=== PATIENT | female | born 1935 | race Caucasian/White ===

== ENCOUNTER 2018-02-13 15:23 | Inpatient (IN) | payer MEDICARE, MEDICAID ==
[2018-02-13] MEDS ORDERED: Acetaminophen 500 MG TAB ONE (16:36)
--- NOTE | 2018-02-13 16:45 | RAD ---
RIGHT WRIST THREE VIEWS: 02/13/18 HISTORY: 82-year-old female with history of right wrist pain following syncopal episode from a toilet. Fall an d trauma. 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 IMPRESSION: Right wrist joint arthrosis without acute fracture or dislocation. POS: [facility]
--- NOTE | 2018-02-13 16:46 | RAD ---
RIGHT ELBOW FOUR VIEWS: 02/13/18 HISTORY: 82-year-old female with history of right elbow pain following a syncopal episode while sitting on the toilet and resultant trauma. There are some arthrosis changes of the elbow joint. No evidence for acute fracture or dislocation. IMPRESSION: Right elbow joint athrosis without acute fracture or dislocation. POS: [facility]
--- NOTE | 2018-02-13 16:50 | RAD ---
RIGHT KNEE FOUR VIEWS: 02/13/18 HISTORY: 82-year-old female with history of right knee injury following a syncopal episode while sitting on th e toilet and resultant trauma. Degenerative changes of the right knee joint with some chondrocalcinosis. No fracture or dislocation or other acute process. IMPRESSION: Degenerative changes without fracture or dislocation. POS: [facility]
[2018-02-13 16:51] LABS: #Basophils 0.1 thou/uL (0.0-0.2); #Eosinphils 0.2 thou/uL (0.0-0.7); #Lymphocytes 2.3 thou/uL (1.20-3.40); #Monocytes 0.6 thou/uL (0.11-0.59); #Neutrophils 7.2 thou/uL (1.40-6.50); %Basophils 0.8 % (0.0-1.0); %Eosinophils 1.6 % (0.0-10.0); %Lymphocytes 22.4 % (21.0-51.0); %Monocytes 5.8 % (0.0-10.0); %Neutrophils 69.5 % (42.0-75.0); Hemoglobin 13.7 g/dL (12.0-16.0); Mean Corpuscular HGB CONC 34.3 g/dL (32.0-36.0); Mean Corpuscular Hemoglobin 33.5 pg (27.0-31.0); Mean Corpuscular Volume 97.7 fl (81.0-99.0); Mean Platelet Volume 5.4 fL (7.4-10.4); Platelet Count 348 thou/uL (130-400); RBC Distribution Width 10.4 % (11.5-14.5); Red Blood Cell (RBC) Count 4.09 mill/uL (4.20-5.40); White Blood Cell (WBC) Count 10.3 thou/uL (4.8-10.8)
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
[2018-02-13 17:18] LABS: CKMB 0.7 ng/mL (0-6.6); Troponin I Less than 0.010 ng/mL (< 0.028)
[2018-02-13 17:19] LABS: ALT (SGPT) 9 U/L (8-55); AST (SGOT) 23 U/L (5-34); Alkaline Phosphatase 65 U/L (40-150); Anion Gap 13 mmol/L (10-20); BUN (Urea Nitrogen) 16 mg/dL (9.8-20.1); Bilirubin, Total 0.5 mg/dL (0.2-1.2); Calc. Creatinine Clearance 0 mL/min (70-130); Calcium 9.9 mg/dL (7.8-10.44); Carbon Dioxide 26 mmol/L (23-31); Chloride 97 mmol/L (98-107); Estimated GFR-MDRD 51; Globulin 3.4 g/dL (2.4-3.5); Glucose 96 mg/dL (83-110); Potassium 4.2 mmol/L (3.5-5.1); Protein, Total 7.4 g/dL (6.0-8.3); Sodium 132 mmol/L (136-145)
--- NOTE | 2018-02-13 18:00 | CT ---
BRAIN CT WITHOUT IV CONTRAST 02/13/18 HISTORY: 82-year-old female with history of syncope and trauma. Patient has Alzheimer's. COMPARISON: 07/18/16. FINDINGS: There is again noted to be prominent ventriculomegaly which appears to be slightly worse than on the prior study. There is again noted to be a somewhat poorly circumscribed high attenuation mass in the midline in the anterior frontal region measuring approximately 3.3 cm transversely, increasing in siz e from the prior 07/18/16 study at which time it was approximately 2.9 cm. No evidence for acute hemo rrhage. IMPRESSION: Increasing midline increased attenuation mass in the anterior frontal lobes without significant adjac ent edema. Marked ventriculomegaly showing minimal increase particularly in the size of the temporal horns of the lateral ventricles when compared to the prior study. No evidence for acute hemorrhage. C onsider followup nonemergent brain MRI for further assessment in regard to the frontal mass. POS: [facility]
[2018-02-13] MEDS ORDERED: cloNIDine 0.1 MG TAB ONE (18:43)
[2018-02-13] MEDS ORDERED: Ondansetron ODT 4 MG TAB SL PRN (23:19)
[2018-02-13] MEDS ORDERED: Acetaminophen 325 MG TAB PO PRN (23:19)
[2018-02-13] MEDS ORDERED: Ondansetron HCl/PF 4 MG/2 ML Vial IVP PRN ×2 (23:19→23:31)
[2018-02-13] MEDS ORDERED: HYDROcodone/Acetaminophen 5/325 mg Tablet PO PRN (23:31)
[2018-02-13 23:37] VITALS: BMI 23.4
[2018-02-13] MEDS: Sodium Chloride 0.9% 1,000 ML IV SCH (23:54)
--- NOTE | 2018-02-14 00:02 | HP ---
DATE OF ADMISSION: 02/13/2018 TIME OF SERVICE: 2115 hours. PRIMARY CARE PHYSICIAN: Aarti Craig MD CHIEF COMPLAINT: Near syncope. HISTORY OF PRESENT ILLNESS: Ms. Tatum is an 82-year-old female with a history of kind of benign brain tumor at the midline frontal lobes. She was at home and had to get up and go to the restroom this m orning, and had gone to the bathroom without difficulty. She stood up, was able to put her pants on, and then called out for help because she did not feel well. Her daughter came in and witnessed her fall limply to the ground. She did not hit her head. No loss of consciousness and mental status was fairly normal very quickly. No bowel or bladder incontinence. No tongue biting. No tonic-clonic a ctivity. She did have a history of fall some 3 years ago, and they felt that something was going on with her e x- and since she him and her daughter has been living with her and he has been gone, she has had no further problems. She usually gets around with a walker. No chest pain or shortness of breath. No nausea or vomiting. No diarrhea or constipation. PAST MEDICAL HISTORY: 1. Dementia. 2. Coronary artery disease, status post DC in the 80s. 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 4. Hypertension. 5. Hypothyroidism. 6. Asthma. 7. Benign brain tumor. 8. Anxiety. PAST SURGICAL HISTORY: 1. Some TB surgery in 1973 involving open chest. 2. Hysterectomy. 3. Tonsillectomy remotely. HOME MEDICATIONS: 1. Xanax 0.25 mg p.o. q.a.m. and 0.5 mg p.o. at bedtime. 2. Premarin 0.625 mg daily. 3. Advair 100/50, one puff daily. 4. Hydralazine 10 mg p.o. b.i.d. 5. Namenda 10 mg p.o. b.i.d. 6. Lasix 20 mg p.o. b.i.d. 7. Protonix 40 mg daily. 8. Albuterol MDI p.r.n. 9. Levothyroxine 88 mcg 3 times a week and 50 mcg the other days. ALLERGIES: IODINE CONTRAST/DYE and PENICILLIN. FAMILY HISTORY: Negative for clotting or bleeding disorder. No immune dysfunction. SOCIAL HISTORY: Negative habits x3. Her daughter sold her house in [place] and moved in with her 3 years ago. REVIEW OF SYSTEMS: All systems reviewed and negative except as stated per HPI. PHYSICAL EXAMINATION: VITAL SIGNS: Temperature is 97.5, pulse 56, blood pressure 124/45, respiratory rate 18, satting 100% on room air. GENERAL: She is awake. She is alert. She is oriented x3. She is an elderly white female, who appe ars to be in no acute distress. HEENT: Normocephalic, atraumatic. Pupils equal, round, and reactive to light bilaterally. Mucous m embranes are moist. No visible lesion or thrush. NECK: Supple. There is no lymphadenopathy, JVD, or thyromegaly. She had normal carotid upstrokes. I do not appreciate bruit. LUNGS: Clear. No wheeze, no rales, no rhonchi. CARDIOVASCULAR: Normal S1, S2. She has a 2/6 holosystolic murmur best heard at the apex. She has n o systolic ejection murmurs. ABDOMEN: Soft, nontender, nondistended. No mass or organomegaly with normoactive bowel sounds. The re is no rebound, rigidity, or guarding. EXTREMITIES: No cyanosis, no clubbing. She has got nonpitting edema in the bilateral lower extremit ies to about mid tibia level. SKIN: Multiple ecchymosis, but otherwise no rashes or lesions. MUSCULOSKELETAL: Normal to inspection. All joints appeared normal. No evidence of effusion or palp able fluid collections. Does have crepitus to bilateral knees, right more than left. NEUROLOGIC: Cranial nerves II-XII are grossly intact without any focal neurologic deficits, normal s peech pattern, 5/5 strength. LABORATORY DATA: Sodium 132, potassium 4.2, chloride 97, bicarbonate 26, BUN 16, creatinine 1.03, gl ucose 96, calcium 9.1. Liver function completely within normal limits. CBC showed a white count of 10.3, hemoglobin of 13.7, hematocrit of 40, platelet count of 348,000. CK normal at 25, CK-MB 0.7. Troponin I undetectable, less than 0.01. Multiple x-rays looking for fractures are all negative. CT scan of the brain showed the frontal lobe mass has slightly increased in size, but significantly worsened hydrocephalus and enlargement of the bilateral lateral ventricles. ASSESSMENT AND PLAN: 1. Presyncope: The patient likely became orthostatic. We will get orthostatic here. She did not t tremanie her morning blood pressure medicine. She has been here in the ER for some time. Blood pressure after multiple rounds of medications is now well controlled. We will follow up on her blood pressure and orthostatics in the morning. We will start her on IV fluids at 70 mL per hour. 2. Coronary artery disease. Continue home medications. 3. Asthma. Continue home medications. 4. History of hypertension as above. 5. Hypothyroidism. Continue levothyroxine. 6. Anxiety. Continue Xanax. 7. Dementia, on Namenda. We will continue.
[2018-02-14 00:21] LABS: CKMB 0.7 ng/mL (0-6.6); Troponin I Less than 0.010 ng/mL (< 0.028)
[2018-02-14] MEDS: Levothyroxine Sodium 50 MCG TAB PO SCH (04:38)
[2018-02-14 04:52] LABS: #Basophils 0.1 thou/uL (0.0-0.2); #Eosinphils 0.2 thou/uL (0.0-0.7); #Lymphocytes 3.1 thou/uL (1.20-3.40); #Monocytes 0.6 thou/uL (0.11-0.59); #Neutrophils 4.5 thou/uL (1.40-6.50); %Basophils 0.9 % (0.0-1.0); %Eosinophils 2.1 % (0.0-10.0); %Lymphocytes 36.1 % (21.0-51.0); %Monocytes 7.5 % (0.0-10.0); %Neutrophils 53.4 % (42.0-75.0); Hemoglobin 11.8 g/dL (12.0-16.0); Mean Corpuscular HGB CONC 34.5 g/dL (32.0-36.0); Mean Corpuscular Hemoglobin 33.6 pg (27.0-31.0); Mean Corpuscular Volume 97.2 fl (81.0-99.0); Mean Platelet Volume 5.6 fL (7.4-10.4); Platelet Count 287 thou/uL (130-400); RBC Distribution Width 10.4 % (11.5-14.5); Red Blood Cell (RBC) Count 3.51 mill/uL (4.20-5.40); White Blood Cell (WBC) Count 8.5 thou/uL (4.8-10.8)
[2018-02-14 05:00] LABS: Anion Gap 12 mmol/L (10-20); BUN (Urea Nitrogen) 15 mg/dL (9.8-20.1); Calc. Creatinine Clearance 52 mL/min (70-130); Calcium 9.1 mg/dL (7.8-10.44); Carbon Dioxide 24 mmol/L (23-31); Chloride 99 mmol/L (98-107); Estimated GFR-MDRD 65; Glucose 90 mg/dL (83-110); Magnesium 2.1 mg/dL (1.6-2.6); Potassium 3.9 mmol/L (3.5-5.1); Sodium 131 mmol/L (136-145)
[2018-02-14] MEDS: Mometasone/Formoterol 120 PUFF INHALER INH SCH (06:59)
[2018-02-14 07:16] LABS: CKMB 0.6 ng/mL (0-6.6); Troponin I Less than 0.010 ng/mL (< 0.028)
[2018-02-14] MEDS: Famotidine 20 MG TAB PO SCH (08:33)
[2018-02-14] MEDS: hydrALAZINE 10 MG TAB PO SCH ×2 (08:34→20:20)
[2018-02-14] MEDS: ALPRAZolam 0.25 MG TAB PO PRN ×2 (08:40→20:21)
[2018-02-14] MEDS ORDERED: FLUTICASONE INH SCH (09:00)
[2018-02-14] MEDS ORDERED: Famotidine 20 MG TAB PO SCH (09:00)
[2018-02-14] MEDS ORDERED: SALMETEROL INH SCH (09:00)
[2018-02-14] MEDS: Acetaminophen 325 MG TAB PO PRN (12:17)
[2018-02-14] MEDS: Ondansetron ODT 4 MG TAB PO PRN (12:20)
--- NOTE | 2018-02-14 13:59 | PRG ---
DATE OF SERVICE: 02/14/2018 This is a 30-minute initial hospital visit note in which 30 minutes were spent in reviewing the imagi ng record, evaluation, examination of patient, and formulation of plan. CHIEF COMPLAINT: Olfactory groove meningioma. HISTORY OF PRESENT ILLNESS: Ms. Tatum is a very pleasant 82-year-old woman retired from the [employer]. She has a known olfactory groove meningioma that has essentially been followed by [facility] and has been asymptomatic. I reviewed CT scans all the way back to 2012 that demonstrates the af orementioned meningioma and the fact that it has enlarged. It is over 3 cm now, there is no worrisom e vasogenic edema associated with this. In talking with the patient and her daughter, she really has been asymptomatic and as such, I do not suspect it is the cause of her syncope. She is DNR. It is a bit unclear to me why she has not had an MRI to further evaluate this, although at this point, the treatment is irrelevant as the patient as I discussed with her does not wish to have any type of cran iotomy for meningioma resection. I can certainly understand why. I do not think this is a tumor mimi t she will succumb to, but in particular at her age and certainly surgical risk is substantial given her age. She is neurologically intact and has no symptoms or findings related to the tumor. I discu ssed with her and her daughter that in my opinion I do not think it is necessary to further follow th is meningiomas can certainly stall in the growth, but they also tend to grow over time even the benig n more common meningiomas, although I do not think again that this will become an issue for the patie nt and even if it was to become an issue, neither the patient nor her daughter want anything done for it. I would just continue with the syncopal workup. DIAGNOSES: 1. Olfactory groove meningioma enlarging over the years, asymptomatic. 2. Syncope.
[2018-02-14] MEDS: hydrALAZINE 20 MG/ML VIAL SLOW IVP PRN (16:23)
--- NOTE | 2018-02-14 18:16 | PDOC.PN ---
- Subjective Encounter Start Date: 02/14/18 Encounter Start Time: 17:45 Subjective: f/u for near syncope. Feels ok overall. Some orthostasis noted per nursing -: but no accompanying sx. Not very active at home per daughter. - Objective Resuscitation Status: Resuscitation Status DNR:Do Not Resuscitate MAR Reviewed: Yes Vital Signs & Weight: Vital Signs (12 hours) Temp Pulse Pulse Pulse Pulse Pulse Resp 02/14/18 16:35 69 70 74 77 02/14/18 16:23 70 02/14/18 16:20 97.9 F 73 18 02/14/18 14:36 02/14/18 12:25 02/14/18 11:02 96.7 F L 62 20 02/14/18 07:49 97.8 F 65 16 02/14/18 07:29 97.5 F L 64 20 02/14/18 06:59 65 16 BP BP BP BP BP BP BP 02/14/18 16:35 193/74 H 168/72 H 131/60 213/81 H 02/14/18 16:23 201/77 H 02/14/18 16:20 201/77 H 02/14/18 14:36 195/73 H 02/14/18 12:25 176/76 H 02/14/18 11:02 150/69 H 02/14/18 07:49 02/14/18 07:29 177/76 H 02/14/18 06:59 BP BP Pulse Ox 02/14/18 16:35 02/14/18 16:23 02/14/18 16:20 99 02/14/18 14:36 02/14/18 12:25 02/14/18 11:02 97 02/14/18 07:49 02/14/18 07:29 123/61 168/72 H 97 02/14/18 06:59 98 I&O: 02/13/18 02/14/18 02/15/18 06:59 06:59 06:59 Intake Total 341 Output Total 300 100 Balance 41 -100 Result Diagrams: 02/14/18 04:16 02/14/18 04:16 Radiology Reviewed by me: Yes (CT brain - + meningioma, ventriculomegaly) EKG Reviewed by me: Yes ( Tele - SR) Phys Exam - Physical Examination Constitutional: NAD HEENT: PERRLA, sclera anicteric, oral pharynx no lesions Neck: no nodes, no JVD, supple, full ROM Respiratory: no wheezing, no rales, no rhonchi, clear to auscultation bilateral S1, S2 Cardiovascular: RRR, no significant murmur, no rub, gallop Gastrointestinal: soft, non-tender, no distention, positive bowel sounds Musculoskeletal: no edema, pulses present Neurological: normal sensation, moves all 4 limbs Psychiatric: normal affect, A&O x 3 Deviation from normal: contusion on forehead and R forearm Skin: normal turgor, cap refill <2 seconds Dx/Plan (1) Near syncope Status: Acute Comment: Likely multifactorial, IVF's, serial BP monitoring, ? ataxia given hx of meningioma (2) Meningioma Code(s): D32.9 - BENIGN NEOPLASM OF MENINGES, UNSPECIFIED Status: Chronic Comment: Neurosurgery monitoring but no plans for resection as pt not interested in surgical intervention, supportive care (3) Falls frequently Code(s): R29.6 - REPEATED FALLS Status: Chronic Comment: RW with SBA, recommend home health with PT on d/c (4) Chronic hyponatremia Code(s): E87.1 - HYPO-OSMOLALITY AND HYPONATREMIA Status: Chronic Comment: Stable trend (5) Hypertension Code(s): I10 - ESSENTIAL (PRIMARY) HYPERTENSION Status: Chronic Qualifiers: Hypertension type: essential hypertension Qualified Code(s): I10 - Essential (primary) hypertension Comment: Some orthostasis noted but overall trend stable - Plan plan discussed w/ family, PT/OT, social work administrator, out of bed/ambulate, DVT proph w/SCDs Stable overall -: Discussed orthostasis but may have to adjust to it at home -: Home Health with PT on d/c -: Continue IVF's another 24h then d/c -: Home in am 02/15/18 * .
[2018-02-14] MEDS: Sodium Chloride 0.9% 1,000 ML IV SCH ×3 (18:52→19:37)
[2018-02-15] MEDS: Levothyroxine Sodium 50 MCG TAB PO SCH (04:56)
[2018-02-15] MEDS: hydrALAZINE 20 MG/ML VIAL SLOW IVP PRN ×3 (05:06→21:23)
[2018-02-15] MEDS: Famotidine 20 MG TAB PO SCH (08:25)
[2018-02-15] MEDS: hydrALAZINE 10 MG TAB PO SCH (08:25)
[2018-02-15 11:17] LABS: Bilirubin Negative (Negative); Blood, Urine Negative (Negative); Clarity CLOUDY (Clear); Glucose, Urine (Dipstick) Negative (Negative); Leukocyte Large (Negative); Nitrite Negative (Negative); Protein, Urine (Dipstick) Negative (Neg-Trace); Specific Gravity, Urine 1.013 (1.002-1.036); Urobilinogen 0.2 mg/dL (0.2-1.0)
[2018-02-15 11:20] LABS: Bacteria/HPF 1+ HPF (None Seen); Hyaline Casts/LPF 0-3 HYALINE CAST LPF (0-3 Hyaline); Pathc Cast-AUWi Flag 0.58 (0-2.49); RBC/HPF 0-3 HPF (0-3); Squamous Epithelial 0-3 HPF (0-3); WBC/HPF 21-50 HPF (0-3)
--- NOTE | 2018-02-15 12:25 | PDOC.PN ---
- Subjective Encounter Start Date: 02/15/18 (f/u syncope) Encounter Start Time: 12:23 Subjective: Pt denies any pain or problems. No overnight events - Objective Resuscitation Status: Resuscitation Status DNR:Do Not Resuscitate Vital Signs & Weight: Vital Signs (12 hours) Temp Pulse Resp BP BP BP BP 02/15/18 12:02 97.8 F 02/15/18 11:00 77 16 148/70 H 02/15/18 08:25 95 02/15/18 08:14 95 98/46 L 02/15/18 08:13 89 120/58 L 02/15/18 08:12 97.9 F 89 16 160/68 H 02/15/18 07:13 98 F 83 16 02/15/18 05:06 83 183/77 H 02/15/18 04:47 98.0 F 85 18 183/77 H Pulse Ox 02/15/18 12:02 02/15/18 11:00 99 02/15/18 08:25 02/15/18 08:14 02/15/18 08:13 02/15/18 08:12 97 02/15/18 07:13 02/15/18 05:06 02/15/18 04:47 96 I&O: 02/14/18 02/15/18 02/16/18 06:59 06:59 06:59 Intake Total 341 2130 240 Output Total 300 600 300 Balance 41 1530 -60 Result Diagrams: 02/14/18 04:16 02/14/18 04:16 EKG Reviewed by me: Yes (tele = sinus 70's with occ pvc's) Phys Exam - Physical Examination Constitutional: NAD Respiratory: no wheezing, no rales, no rhonchi, clear to auscultation bilateral Cardiovascular: RRR 2/6 RODRIGO Gastrointestinal: soft, non-tender, no distention, positive bowel sounds Musculoskeletal: no edema Neurological: non-focal, normal sensation, moves all 4 limbs Psychiatric: normal affect Deviation from normal: ecchymosis along right arm, and along right forehead Dx/Plan - Plan * UTI - checked UA due to syncope and pt in the past has been hospitalized for this - it is positive - start rocephin and ordered culture * * Orthostatic hypotension in the context of hypertension. Pt with a significant drop in systolic pressure despite adequate IVF hydration and PO intake. Pt is not safe for discharge to home - is at HIGH risk of recurrent falls. Will d/c the hydralazine, start yuliana hose, continue PT. Changing patient to inpatient status due to this and need for UTI treatment in the hospital setting to monitor progress. * * Pt is normally on lasix at home - do not restart this due to orthostatic hypotension * * all other meds/medical conditions - no change * * dvt prophy - scd's * gi prophy -not indicated\ * * Pt at high risk for falls in current condition and new diagnosis of UTI - warranting inpatient status and further hospitalization to optimize each condition. Consider SNF vs [facility] with PT when ready for discharge - anticipate 2 days. Reviewed plan of care with patient and daughter, they agree. No questions or further needs at end of eval.
[2018-02-15] MEDS: cefTRIAXone\\ROCEPHIN 1 GM in Sodium Chloride 0.9% 100 ML IVPB SCH (12:48)
[2018-02-15] MEDS: Mometasone/Formoterol 120 PUFF INHALER INH SCH (13:30)
[2018-02-15] MEDS: Acetaminophen 325 MG TAB PO PRN (15:00)
[2018-02-15] MEDS: Ondansetron ODT 4 MG TAB PO PRN ×2 (15:00→21:23)
[2018-02-15] MEDS: ALPRAZolam 0.25 MG TAB PO PRN (21:23)
[2018-02-15] MEDS ORDERED: hydrALAZINE 20 MG/ML VIAL SLOW IVP PRN (22:09)
[2018-02-16] MEDS: Acetaminophen 325 MG TAB PO PRN ×3 (01:54→18:11)
[2018-02-16 05:41] LABS: #Eosinphils 0.1 thou/uL (0.0-0.7); #Lymphocytes 2.7 thou/uL (1.20-3.40); #Monocytes 0.7 thou/uL (0.11-0.59); %Basophils 0.4 % (0.0-1.0); %Eosinophils 0.8 % (0.0-10.0); %Lymphocytes 28.5 % (21.0-51.0); %Monocytes 7.5 % (0.0-10.0); %Neutrophils 62.9 % (42.0-75.0); Hemoglobin 11.9 g/dL (12.0-16.0); Mean Corpuscular HGB CONC 34.8 g/dL (32.0-36.0); Mean Corpuscular Hemoglobin 33.8 pg (27.0-31.0); Mean Corpuscular Volume 97.2 fl (81.0-99.0); Mean Platelet Volume 5.3 fL (7.4-10.4); Platelet Count 315 thou/uL (130-400); RBC Distribution Width 10.6 % (11.5-14.5); Red Blood Cell (RBC) Count 3.52 mill/uL (4.20-5.40); White Blood Cell (WBC) Count 9.6 thou/uL (4.8-10.8)
[2018-02-16] MEDS: Ondansetron ODT 4 MG TAB PO PRN ×2 (06:19→21:24)
[2018-02-16] MEDS: Levothyroxine Sodium 88 MCG TAB PO SCH (06:19)
[2018-02-16 06:21] LABS: Anion Gap 12 mmol/L (10-20); BUN (Urea Nitrogen) 7 mg/dL (9.8-20.1); Calc. Creatinine Clearance 60 mL/min (70-130); Carbon Dioxide 23 mmol/L (23-31); Chloride 100 mmol/L (98-107); Estimated GFR-MDRD 77; Glucose 101 mg/dL (83-110); Potassium 3.6 mmol/L (3.5-5.1); Sodium 131 mmol/L (136-145)
[2018-02-16] MEDS: Mometasone/Formoterol 120 PUFF INHALER INH SCH (07:21)
[2018-02-16] MEDS: ALPRAZolam 0.25 MG TAB PO PRN (09:48)
[2018-02-16] MEDS: Famotidine 20 MG TAB PO SCH (09:48)
[2018-02-16] MEDS: cefTRIAXone\\ROCEPHIN 1 GM in Sodium Chloride 0.9% 100 ML IVPB SCH (12:15)
[2018-02-16] MEDS ORDERED: Magnesium Citrate 300 ML BOT PO SCH (18:00)
--- NOTE | 2018-02-16 18:17 | PDOC.PN ---
- Subjective Encounter Start Date: 02/16/18 Encounter Start Time: 18:00 Subjective: f/u for syncope and orthostasis. States sore on head from fall and general -: aches. Appetite decreased and no BM x 48h. - Objective MAR Reviewed: Yes Vital Signs & Weight: Vital Signs (12 hours) Temp Pulse Pulse Pulse Resp BP BP 02/16/18 16:00 97.4 F L 86 20 02/16/18 15:34 82 86 119/57 L 02/16/18 13:07 72 188/80 H 02/16/18 12:07 72 20 02/16/18 10:02 02/16/18 09:11 68 161/69 H 02/16/18 08:12 97.8 F 76 18 BP BP BP BP Pulse Ox Pulse Ox 02/16/18 16:00 145/63 H 97 02/16/18 15:34 145/63 H 02/16/18 13:07 02/16/18 12:07 209/100 H 188/80 H 166/111 H 99 02/16/18 10:02 99 02/16/18 09:11 98 02/16/18 08:12 177/74 H 99 Weight Weight 152 lb 9.6 oz I&O: 02/15/18 02/16/18 02/17/18 06:59 06:59 06:59 Intake Total 1071 Output Total 800 Balance 271 Result Diagrams: 02/16/18 05:14 02/16/18 05:14 Additional Labs: Microbiology 02/15/18 10:00 Urine clean catch Urine Culture - Preliminary Radiology Reviewed by me: Yes (CT brain - + meningioma) EKG Reviewed by me: Yes (Tele - SR) Phys Exam - Physical Examination Constitutional: NAD alert, responsive + contusion on R scalp/forehead HEENT: PERRLA, sclera anicteric, oral pharynx no lesions Neck: no nodes, no JVD, supple, full ROM Respiratory: no wheezing, no rales, no rhonchi, clear to auscultation bilateral S1, S2 Cardiovascular: RRR, no significant murmur, no rub, gallop Gastrointestinal: soft, non-tender, no distention, positive bowel sounds Musculoskeletal: no edema, pulses present Neurological: non-focal, normal sensation, moves all 4 limbs Psychiatric: normal affect, A&O x 3 Skin: no rash, normal turgor, cap refill <2 seconds Dx/Plan (1) Near syncope Status: Acute Comment: Likely multifactorial, IVF's, serial BP monitoring, ? ataxia given hx of meningioma, plan on PT with HH at d/c (2) Meningioma Code(s): D32.9 - BENIGN NEOPLASM OF MENINGES, UNSPECIFIED Status: Chronic Comment: Neurosurgery monitoring but no plans for resection as pt not interested in surgical intervention, supportive care (3) Falls frequently Code(s): R29.6 - REPEATED FALLS Status: Chronic Comment: RW with SBA, recommend home health with PT on d/c (4) Chronic hyponatremia Code(s): E87.1 - HYPO-OSMOLALITY AND HYPONATREMIA Status: Chronic Comment: Stable trend (5) Hypertension Code(s): I10 - ESSENTIAL (PRIMARY) HYPERTENSION Status: Chronic Qualifiers: Hypertension type: essential hypertension Qualified Code(s): I10 - Essential (primary) hypertension Comment: Some orthostasis noted but overall trend stable (6) Urinary tract infection Status: Acute Qualifiers: Urinary tract infection type: acute cystitis Hematuria presence: without hematuria Qualified Code(s): N30.00 - Acute cystitis without hematuria Comment: Suspected, Ucx with 10-25K skin larry preliminarily, await final Ucx results, continue Rocephin another 24h - Plan plan discussed w/ family, continue antibiotics, PT/OT, out of bed/ambulate, DVT proph w/SCDs Stable overall -: Resume Hydralazine 10mg BID -: Mag Citrate today -: Florastor 250mg daily -: Continue Rocephin another 24h * Likely home with HH/PT in 24h
[2018-02-16] MEDS: hydrALAZINE 10 MG TAB PO SCH (21:24)
[2018-02-16] MEDS: Saccharomyces boulardii 250 MG CAP PO SCH (21:24)
[2018-02-16] MEDS: ALPRAZolam 0.25 MG TAB PO SCH (21:29)
[2018-02-17] MEDS: Ondansetron ODT 4 MG TAB PO PRN (04:24)
[2018-02-17] MEDS: Levothyroxine Sodium 50 MCG TAB PO SCH (04:25)
[2018-02-17] MEDS: Mometasone/Formoterol 120 PUFF INHALER INH SCH (06:47)
[2018-02-17] MEDS: ALPRAZolam 0.25 MG TAB PO SCH ×2 (08:42→21:10)
[2018-02-17] MEDS: Famotidine 20 MG TAB PO SCH (08:54)
[2018-02-17] MEDS: hydrALAZINE 10 MG TAB PO SCH ×2 (08:54→21:16)
[2018-02-17] MEDS: cefTRIAXone\\ROCEPHIN 1 GM in Sodium Chloride 0.9% 100 ML IVPB SCH (13:04)
--- NOTE | 2018-02-17 14:45 | PDOC.PN ---
- Subjective Encounter Start Date: 02/17/18 Encounter Start Time: 14:35 Subjective: f/u near syncope and orthostasis. States doing ok. + BM's. -: some LAM but overall improved. - Objective MAR Reviewed: Yes Vital Signs & Weight: Vital Signs (12 hours) Temp Pulse Resp BP BP BP Pulse Ox 02/17/18 12:11 98.7 F 81 18 138/58 L 89 L 02/17/18 08:54 145/64 H 02/17/18 08:50 97.9 F 27 H 145/64 H 93 L 02/17/18 04:25 98.1 F 91 20 157/67 H 96 Weight Weight 152 lb 9.6 oz I&O: 02/16/18 02/17/18 02/18/18 06:59 06:59 06:59 Intake Total 1071 730 Output Total 800 1150 Balance 271 -420 Result Diagrams: 02/16/18 05:14 02/16/18 05:14 Additional Labs: Microbiology 02/15/18 10:00 Urine clean catch Urine Culture - Final 02/15/18 10:00 Urine clean catch Urine Culture - Preliminary EKG Reviewed by me: Yes (Tele - SR in 70's) Phys Exam - Physical Examination Constitutional: NAD R lateral forehead contusion/ecchymosis HEENT: PERRLA, sclera anicteric, oral pharynx no lesions Neck: no nodes, no JVD, supple, full ROM Respiratory: no wheezing, no rales, no rhonchi, clear to auscultation bilateral S1, S2 Cardiovascular: RRR, no significant murmur, no rub, gallop Gastrointestinal: soft, non-tender, no distention, positive bowel sounds Musculoskeletal: no edema, pulses present Neurological: normal sensation, moves all 4 limbs Psychiatric: normal affect Skin: no rash, normal turgor, cap refill <2 seconds Dx/Plan (1) Near syncope Status: Acute Comment: Likely multifactorial, IVF's, serial BP monitoring, ? ataxia given hx of meningioma, plan on SNF options (2) Meningioma Code(s): D32.9 - BENIGN NEOPLASM OF MENINGES, UNSPECIFIED Status: Chronic Comment: Neurosurgery monitoring but no plans for resection as pt not interested in surgical intervention, supportive care (3) Falls frequently Code(s): R29.6 - REPEATED FALLS Status: Chronic Comment: RW with SBA, CM for SNF options (4) Chronic hyponatremia Code(s): E87.1 - HYPO-OSMOLALITY AND HYPONATREMIA Status: Chronic Comment: Stable trend (5) Hypertension Code(s): I10 - ESSENTIAL (PRIMARY) HYPERTENSION Status: Chronic Qualifiers: Hypertension type: essential hypertension Qualified Code(s): I10 - Essential (primary) hypertension Comment: Some orthostasis noted but overall trend stable (6) Urinary tract infection Status: Acute Qualifiers: Urinary tract infection type: acute cystitis Hematuria presence: without hematuria Qualified Code(s): N30.00 - Acute cystitis without hematuria Comment: Suspected but Ucx with 10-25K normal skin larry, d/c Rocephin - Plan plan discussed w/ family, PT/OT, clinical social worker, out of bed/ambulate Stable overall -: D/C Rocephin as Ucx with normal skin larry -: CM for SNF options -: D/C Tele -: Likely can transition to SNF care when approved * Transfer to medical floor
[2018-02-17] MEDS ORDERED: diphenhydrAMINE 25 MG CAP PO PRN (16:30)
[2018-02-17] MEDS: Saccharomyces boulardii 250 MG CAP PO SCH (21:10)
[2018-02-18 02:22] LABS: Bilirubin Negative (Negative); Blood, Urine Negative (Negative); Clarity CLEAR (Clear); Glucose, Urine (Dipstick) Negative (Negative); Leukocyte Negative (Negative); Nitrite Negative (Negative); Protein, Urine (Dipstick) Negative (Neg-Trace); Specific Gravity, Urine 1.007 (1.002-1.036); Urobilinogen 0.2 mg/dL (0.2-1.0)
[2018-02-18 02:24] LABS: Bacteria/HPF None Seen HPF (None Seen); Hyaline Casts/LPF 0-3 HYALINE CAST LPF (0-3 Hyaline); RBC/HPF 0-3 HPF (0-3); Squamous Epithelial 0-3 HPF (0-3); WBC/HPF 0-3 HPF (0-3)
[2018-02-18] MEDS: Levothyroxine Sodium 88 MCG TAB PO SCH (06:27)
[2018-02-18] MEDS: Mometasone/Formoterol 120 PUFF INHALER INH SCH (06:59)
[2018-02-18] MEDS: Famotidine 20 MG TAB PO SCH (08:36)
[2018-02-18] MEDS: ALPRAZolam 0.25 MG TAB PO SCH ×2 (08:36→19:19)
[2018-02-18] MEDS: hydrALAZINE 10 MG TAB PO SCH (08:55)
--- NOTE | 2018-02-18 16:57 | PDOC.PN ---
- Subjective Encounter Start Date: 02/18/18 Encounter Start Time: 16:45 Subjective: f/u for syncope and labile HTN. Some urinary retention per nursing -: tx with I/O straight caths. - Objective MAR Reviewed: Yes Vital Signs & Weight: Vital Signs (12 hours) Temp Pulse Resp BP BP BP 02/18/18 12:00 97.8 F 72 16 143/65 H 132/61 141/64 H 02/18/18 08:55 74 02/18/18 08:51 98.0 F 74 16 196/74 H 159/71 H 156/72 H 02/18/18 08:35 98.0 F 74 16 02/18/18 06:59 72 16 Weight Weight 152 lb 9.6 oz I&O: 02/17/18 02/18/18 02/19/18 06:59 06:59 06:59 Intake Total 730 120 Output Total 1150 1152 Balance -420 1032 Result Diagrams: 02/16/18 05:14 02/16/18 05:14 Additional Labs: Microbiology 02/15/18 10:00 Urine clean catch Urine Culture - Final 02/15/18 10:00 Urine clean catch Urine Culture - Preliminary Phys Exam - Physical Examination Constitutional: NAD HEENT: PERRLA, sclera anicteric, oral pharynx no lesions Neck: no nodes, no JVD, supple, full ROM Respiratory: no wheezing, no rales, no rhonchi, clear to auscultation bilateral S1, S2 Cardiovascular: RRR, no significant murmur, no rub, gallop Gastrointestinal: soft, non-tender, no distention, positive bowel sounds Musculoskeletal: no edema, pulses present Neurological: normal sensation, moves all 4 limbs Psychiatric: normal affect Skin: no rash, normal turgor, cap refill <2 seconds Dx/Plan (1) Near syncope Status: Acute Comment: Likely multifactorial, serial BP monitoring, ? ataxia given hx of meningioma, plan on SNF after d/c (2) Meningioma Code(s): D32.9 - BENIGN NEOPLASM OF MENINGES, UNSPECIFIED Status: Chronic Comment: Neurosurgery monitoring but no plans for resection as pt not interested in surgical intervention, supportive care (3) Falls frequently Code(s): R29.6 - REPEATED FALLS Status: Chronic Comment: RW with SBA, CM for SNF options (4) Chronic hyponatremia Code(s): E87.1 - HYPO-OSMOLALITY AND HYPONATREMIA Status: Chronic Comment: Stable trend (5) Hypertension Code(s): I10 - ESSENTIAL (PRIMARY) HYPERTENSION Status: Chronic Qualifiers: Hypertension type: essential hypertension Qualified Code(s): I10 - Essential (primary) hypertension Comment: Some orthostasis noted but overall trend stable, increase Hydralazine 25mg BID (6) Urinary tract infection Status: Acute Qualifiers: Urinary tract infection type: acute cystitis Hematuria presence: without hematuria Qualified Code(s): N30.00 - Acute cystitis without hematuria Comment: Suspected but Ucx with 10-25K normal skin larry, d/c Rocephin - Plan PT/OT, home health care social worker, out of bed/ambulate, DVT proph w/SCDs Stable overall -: Increase Hydralazine 25mg BID -: OOB with PT -: Continue Florastor 250mg daily -: Plan on d/c 02/19/18 * .
[2018-02-18] MEDS ORDERED: Temazepam 15 MG CAP PO PRN (18:49)
[2018-02-18] MEDS: Saccharomyces boulardii 250 MG CAP PO SCH (19:18)
[2018-02-18] MEDS: hydrALAZINE 25 MG TAB PO SCH (19:18)
[2018-02-19] MEDS: Levothyroxine Sodium 50 MCG TAB PO SCH (05:30)
[2018-02-19] MEDS: Mometasone/Formoterol 120 PUFF INHALER INH SCH (06:00)
[2018-02-19] MEDS: Famotidine 20 MG TAB PO SCH (07:51)
[2018-02-19] MEDS: hydrALAZINE 25 MG TAB PO SCH (07:52)
[2018-02-19] MEDS: ALPRAZolam 0.25 MG TAB PO SCH (08:52)
[2018-02-19] MEDS: Ondansetron ODT 4 MG TAB PO PRN ×2 (08:56→15:37)
--- NOTE | 2018-02-19 12:49 | DIS ---
DATE OF ADMISSION: 02/15/2018 DATE OF DISCHARGE: 02/19/2018 DISCHARGE DIAGNOSES: 1. Near syncope, multifactorial. 2. Meningioma chronic, no surgical intervention recommended. 3. Frequent falls. 4. Chronic hyponatremia. 5. Hypertension, labile. 6. Urinary tract infection with negative urine culture. 7. Urinary retention. 8. Dementia, likely Alzheimer's type. CONSULTATIONS: Dr. Acosta with Neurosurgical Service. PERTINENT LAB AND X-RAY FINDINGS: Sodium ranged between 131-132, creatinine ranged between 0.72-1.03 with estimated GFR ranging between 51-77. CBC showed a hemoglobin ranging between 11.8-13.7. Urine culture dated 02/15/2018 showed 10-25,000 colonies of mixed skin larry. CT of the brain without con trast dated 02/13/2018 showed meningioma in the anterior frontal lobes without significant edema. Ma rked ventriculomegaly. No acute hemorrhage. CT of the cervical spine dated 02/13/2018 showed degene rative changes of the cervical spine without evidence of acute fracture or dislocation. Portable terri st x-ray dated 02/13/2018 showed no acute cardiopulmonary process. Old granulomatous changes noted. Four views of the right upper extremity showed joint arthrosis without evidence of acute fracture or dislocation. Four views of the right knee dated 02/13/2018 showed degenerative changes without acut e fracture or dislocation. Three views of the right wrist dated 02/13/2018 showed no acute fracture or dislocation. HOSPITAL COURSE: The patient was initially admitted after presenting status post near syncopal episo de. The patient underwent general evaluation including orthostatic assessment showing evidence of or thostasis. The patient was given IV fluid hydration and underwent CT imaging of the brain. The lora ent was noted with a chronic meningioma in the anterior frontal lobes, evaluated by the Neurosurgical Service. Current recommendations per Neurosurgery are for general observation and no specific surgi teresa intervention. The patient and daughter were not interested in pursuing any surgical intervention or further evaluation. Current evaluation by Neurosurgery also felt that the meningioma was not rel ated to her current presentation for near syncope. The patient did receive gentle IV fluid hydration and titrated on her antihypertensive regimen of hydralazine to 25 mg b.i.d. The patient was also no yuliana with deconditioning and unsteady gait evaluated by physical therapy service. Due to patient's ov erall comorbid status, recent falls and dementia the patient was deemed an appropriate candidate for supervised medical care and long term. The patient was noted with mild urinary retention requi ring in and out bladder catheterization as p.r.n. The patient may need additional evaluation on an o ngoing basis after discharge. Overall, patient did remain clinically stable throughout the hospital course, tolerating regular oral intake. Vital signs have remained stable. I have examined the patie nt at the time of discharge and discussed pertinent follow up instructions and the patient verbalizes understanding and agreement. The patient overall clinically stable and ready for discharge on 02/19. DISCHARGE MEDICATIONS: 1. Xanax 0.25 mg p.o. b.i.d. 2. Advair Diskus 1 inhalation daily. 3. Hydralazine 25 mg p.o. b.i.d. 4. Levothyroxine 50 mcg on Friday, , Friday, and Friday and 88 mcg on Friday, Friday, and Friday. 5. Namenda 10 mg p.o. b.i.d. 6. Macrobid 100 mg p.o. b.i.d. until 02/24/2018. 7. Protonix 40 mg p.o. daily. 8. Florastor 250 mg p.o. daily. FOLLOWUP: Patient to follow up with her primary care provider Dr. Aarti Craig within 7 days of disch arge. CONDITION ON DISCHARGE: Fair. ACTIVITY: Ad jin. Rolling walker with contact guard assistance and high fall risk precautions. DIET: Regular. CODE STATUS: Do not resuscitate. DISPOSITION: Discharged to [facility] 02/19/2018.
[2018-02-19] MEDS: Acetaminophen 325 MG TAB PO PRN (15:37)
[2018-02-19 16:03] VITALS: BP 151/62; TEMP 94.6
== END 2018-02-19 17:12 | DRG 690 ==
LOC: ERS 15:23 → 2SW 19:20 → OBSVTOIN 02-15 12:18 → 2NO 02-15 13:42 → ONC 02-17 18:38 → T4-A 02-18 22:32
PROVIDERS: ADMIT Internal Medicine; ATTEND Internal Medicine
DX: N30.00 Acute cystitis without hematuria (principal); E87.1 Hypo-osmolality and hyponatremia; R55 Syncope and collapse; I95.1 Orthostatic hypotension; D32.0 Benign neoplasm of cerebral meninges; R33.9 Retention of urine, unspecified; Z66 Do not resuscitate; R29.6 Repeated falls; I10 Essential (primary) hypertension; I25.10 Atherosclerotic heart disease of native coronary artery without angina pectoris; E03.9 Hypothyroidism, unspecified; J45.909 Unspecified asthma, uncomplicated; F41.9 Anxiety disorder, unspecified; G30.9 Alzheimer's disease, unspecified; F02.80 Dementia in other diseases classified elsewhere, unspecified severity, without behavioral disturbance, psychotic disturbance, mood disturbance, and anxiety; I25.2 Old myocardial infarction; Z88.0 Allergy status to penicillin; Z91.041 Radiographic dye allergy status; Z79.899 Other long term (current) drug therapy
CPT/HCPCS: 36415; 70450; 71045; 72125; 80048; 80053; 81001; 81003; 81015; 82553; 83735; 84484; 85025; 87086; 93005; A4216; G8978-GP-CK; G8979-GP-CI; G8987-GO-CK; G8988-GO-CI; J0360; J0696; J2405; J7050; Q0162

== ENCOUNTER 2018-03-15 19:59 | Inpatient (IN) | payer MEDICARE, MEDICAID ==
[2018-03-15 21:42] LABS: #Eosinphils 0.3 thou/uL (0.0-0.7); #Lymphocytes 2.4 thou/uL (1.20-3.40); #Monocytes 0.9 thou/uL (0.11-0.59); #Neutrophils 4.8 thou/uL (1.40-6.50); %Basophils 0.6 % (0.0-1.0); %Lymphocytes 28.6 % (21.0-51.0); %Monocytes 10.4 % (0.0-10.0); %Neutrophils 57.4 % (42.0-75.0); Hemoglobin 12.6 g/dL (12.0-16.0); Mean Corpuscular HGB CONC 33.7 g/dL (32.0-36.0); Mean Corpuscular Hemoglobin 33.4 pg (27.0-31.0); Mean Corpuscular Volume 99.1 fL (78.0-98.0); Mean Platelet Volume 5.6 fL (7.4-10.4); Platelet Count 348 thou/uL (130-400); RBC Distribution Width 11.6 % (11.5-14.5); Red Blood Cell (RBC) Count 3.79 mill/uL (4.20-5.40); White Blood Cell (WBC) Count 8.3 thou/uL (4.8-10.8)
--- NOTE | 2018-03-15 21:56 | CT ---
CT BRAIN: 03/15/2018 COMPARISON: 02/14/2018 TECHNIQUE: Noncontrast enhanced CT images of the brain obtained. FINDINGS: Again, hydrocephalus with prominence of the lateral ventricles is seen. This was noted on the patien t's previous comparison CT. Again, a soft tissue mass is seen along the dorsal aspect of the cribri form plate, diameter measuring approximately 3.7 cm. This appears to be minimally enlarged compared to the previous comparison CT from one month earlier, although some of this may be technical differen zoraida in the overall measurement. No significant evidence of subarachnoid or subdural blood seen. IMPRESSION: 1. Likely frontal or dural based intracranial mass noted on numerous previous CT scans. 2. No acute intracranial pathology seen. POS: [facility]
[2018-03-15 22:01] LABS: ALT (SGPT) 15 U/L (8-55); AST (SGOT) 39 U/L (5-34); Albumin 3.3 g/dL (3.4-4.8); Alkaline Phosphatase 75 U/L (40-150); Anion Gap 15 mmol/L (10-20); BUN (Urea Nitrogen) 7 mg/dL (9.8-20.1); Bilirubin, Total 0.5 mg/dL (0.2-1.2); CK (CPK) 68 U/L (29-168); Calc. Creatinine Clearance 0 mL/min (70-130); Calcium 8.6 mg/dL (7.8-10.44); Carbon Dioxide 20 mmol/L (23-31); Chloride 102 mmol/L (98-107); Estimated GFR-MDRD 67; Globulin 2.5 g/dL (2.4-3.5); Glucose 98 mg/dL (83-110); Magnesium 1.6 mg/dL (1.6-2.6); Potassium 4.2 mmol/L (3.5-5.1); Protein, Total 5.8 g/dL (6.0-8.3); Sodium 133 mmol/L (136-145)
[2018-03-15 22:04] LABS: CKMB 2.7 ng/mL (0-6.6)
[2018-03-15 23:09] LABS: Bilirubin Negative (Negative); Blood, Urine Negative (Negative); Clarity CLOUDY (Clear); Glucose, Urine (Dipstick) Negative (Negative); Leukocyte Small (Negative); Nitrite Negative (Negative); Protein, Urine (Dipstick) Negative (Neg-Trace); Specific Gravity, Urine 1.011 (1.002-1.036); Urobilinogen 0.2 mg/dL (0.2-1.0)
[2018-03-15 23:11] LABS: Bacteria/HPF None Seen HPF (None Seen); RBC/HPF 0-3 HPF (0-3)
[2018-03-15 23:14] LABS: Pathc Cast-AUWi Flag 4.36 (0-2.49)
--- NOTE | 2018-03-15 23:14 | RAD ---
AP VIEW CHEST: 03/15/2018 HISTORY: Altered mental status. An 82-year-old female. COMPARISON: 03/11/2018 FINDINGS: AP view chest demonstrates an EKG lead seen over the chest. Small bilateral pleural effusions are se en. Cardiomegaly is noted. Pulmonary vascular congestion is seen. No evidence of pneumonia or pneu mothorax is seen. IMPRESSION: Bilateral pleural effusions, not significantly changed since the previous comparison radiograph from 03/11/2018. POS: [facility]
[2018-03-15 23:22] LABS: Hyaline Casts/LPF NONE SEEN LPF (0-3 Hyaline)
[2018-03-16] MEDS ORDERED: Furosemide 20 MG/2 ML VIAL ONE (02:21)
[2018-03-16] MEDS ORDERED: Acetaminophen 325 MG TAB PO PRN ×2 (03:45→06:02)
[2018-03-16] MEDS ORDERED: Ondansetron ODT 4 MG TAB SL PRN (03:45)
[2018-03-16] MEDS ORDERED: Ondansetron HCl/PF 4 MG/2 ML Vial IVP PRN ×2 (03:45→06:02)
[2018-03-16] MEDS ORDERED: Levothyroxine Sodium 88 MCG TAB PO SCH (06:00)
[2018-03-16] MEDS ORDERED: HYDROcodone/Acetaminophen 5/325 mg Tablet PO PRN ×2 (06:02)
[2018-03-16] MEDS ORDERED: Ondansetron ODT 4 MG TAB PO PRN (06:02)
[2018-03-16] MEDS ORDERED: PROVENTIL INHALER 6.7 G (200 INHALATIONS) INH PRN (06:02)
[2018-03-16] MEDS ORDERED: Benzonatate 100 MG CAP PO PRN (06:02)
[2018-03-16 07:21] LABS: #Basophils 0.1 thou/uL (0.0-0.2); #Eosinphils 0.3 thou/uL (0.0-0.7); #Lymphocytes 2.4 thou/uL (1.20-3.40); #Monocytes 0.7 thou/uL (0.11-0.59); #Neutrophils 3.3 thou/uL (1.40-6.50); %Basophils 1.2 % (0.0-1.0); %Eosinophils 3.8 % (0.0-10.0); %Lymphocytes 35.1 % (21.0-51.0); %Monocytes 10.7 % (0.0-10.0); %Neutrophils 49.2 % (42.0-75.0); Hemoglobin 11.7 g/dL (12.0-16.0); Mean Corpuscular HGB CONC 33.5 g/dL (32.0-36.0); Mean Corpuscular Hemoglobin 33.1 pg (27.0-31.0); Mean Corpuscular Volume 98.8 fL (78.0-98.0); Mean Platelet Volume 5.7 fL (7.4-10.4); Platelet Count 327 thou/uL (130-400); RBC Distribution Width 11.5 % (11.5-14.5); Red Blood Cell (RBC) Count 3.53 mill/uL (4.20-5.40); White Blood Cell (WBC) Count 6.8 thou/uL (4.8-10.8)
[2018-03-16 07:39] LABS: Anion Gap 13 mmol/L (10-20); BUN (Urea Nitrogen) 6 mg/dL (9.8-20.1); Calc. Creatinine Clearance 61 mL/min (70-130); Calcium 8.7 mg/dL (7.8-10.44); Carbon Dioxide 24 mmol/L (23-31); Chloride 102 mmol/L (98-107); Estimated GFR-MDRD 77; Glucose 77 mg/dL (83-110); Magnesium 1.3 mg/dL (1.6-2.6); Potassium 3.2 mmol/L (3.5-5.1); Sodium 136 mmol/L (136-145)
--- NOTE | 2018-03-16 07:51 | PDOC.PN ---
- Subjective Encounter Start Date: 03/16/18 Encounter Start Time: 07:49 Subjective: i have a lot of stomach problems - Objective Resuscitation Status: Resuscitation Status FULL:Full Resuscitation MAR Reviewed: Yes Vital Signs & Weight: Vital Signs (12 hours) Temp Pulse Resp BP Pulse Ox 03/16/18 04:00 97.9 F 73 18 172/70 H 93 L 03/16/18 03:32 97.8 F 73 18 93 L 03/16/18 03:00 97.8 F 73 18 156/69 H 93 L Weight Weight 146 lb 12.8 oz Result Diagrams: 03/16/18 06:47 03/16/18 06:47 Phys Exam - Physical Examination Neck: no JVD Respiratory: clear to auscultation bilateral Cardiovascular: RRR, no significant murmur Gastrointestinal: soft, non-tender, positive bowel sounds Musculoskeletal: no edema Dx/Plan (1) Atrial fibrillation Code(s): I48.91 - UNSPECIFIED ATRIAL FIBRILLATION Status: Chronic Comment: New dx. Seen by cardiology. Echo pending. Has inherent rate control so far. Discussed anticoag with daughter and Alma MATTHEW. No anticoagulation secondary to the fall risks. (2) Dementia Code(s): F03.90 - UNSPECIFIED DEMENTIA WITHOUT BEHAVIORAL DISTURBANCE Status: Chronic Qualifiers: Dementia type: unspecified type Dementia behavioral disturbance: without behavioral disturbance Qualified Code(s): F03.90 - Unspecified dementia without behavioral disturbance (3) NPH (normal pressure hydrocephalus) Code(s): G91.2 - (IDIOPATHIC) NORMAL PRESSURE HYDROCEPHALUS Status: Chronic Comment: Stable. No furhter interventions given her age. (4) Abdominal pain Code(s): R10.9 - UNSPECIFIED ABDOMINAL PAIN Status: Chronic Qualifiers: Abdominal location: unspecified location Qualified Code(s): R10.9 - Unspecified abdominal pain (5) Hypertension Code(s): I10 - ESSENTIAL (PRIMARY) HYPERTENSION Status: Chronic Qualifiers: Hypertension type: essential hypertension Comment: Some orthostasis noted but overall trend stable, increase Hydralazine 25mg BID (6) Hypothyroidism Code(s): E03.9 - HYPOTHYROIDISM, UNSPECIFIED Status: Chronic Qualifiers: Hypothyroidism type: unspecified Qualified Code(s): E03.9 - Hypothyroidism , unspecified Comment: Stable. Resume home levothyroxine. (7) Nausea Code(s): R11.0 - NAUSEA Status: Chronic - Plan appears stable, benign abd exam, discuss with family * .
[2018-03-16] MEDS: Famotidine 20 MG TAB PO SCH ×2 (09:38→21:53)
[2018-03-16] MEDS: ALPRAZolam 0.25 MG TAB PO SCH (09:39)
[2018-03-16] MEDS: Carvedilol 6.25 MG TAB PO SCH ×2 (09:40→16:58)
[2018-03-16] MEDS: Enoxaparin Sodium 40 MG/0.4 ML SYRINGE SC SCH (09:40)
[2018-03-16] MEDS: Mometasone/Formoterol 120 PUFF INHALER INH SCH (18:27)
[2018-03-16] MEDS ORDERED: ALPRAZolam 0.25 MG TAB PO SCH (21:00)
[2018-03-17] MEDS ORDERED: Levothyroxine Sodium 50 MCG TAB PO SCH (06:00)
[2018-03-17 06:08] LABS: #Eosinphils 0.3 thou/uL (0.0-0.7); #Lymphocytes 3.3 thou/uL (1.20-3.40); #Monocytes 0.9 thou/uL (0.11-0.59); %Basophils 0.5 % (0.0-1.0); %Eosinophils 3.4 % (0.0-10.0); %Lymphocytes 43.8 % (21.0-51.0); %Monocytes 11.8 % (0.0-10.0); %Neutrophils 40.6 % (42.0-75.0); Hemoglobin 11.6 g/dL (12.0-16.0); Mean Corpuscular Hemoglobin 33.8 pg (27.0-31.0); Mean Corpuscular Volume 99.3 fL (78.0-98.0); Mean Platelet Volume 5.8 fL (7.4-10.4); Platelet Count 327 thou/uL (130-400); RBC Distribution Width 11.4 % (11.5-14.5); Red Blood Cell (RBC) Count 3.45 mill/uL (4.20-5.40); White Blood Cell (WBC) Count 7.5 thou/uL (4.8-10.8)
[2018-03-17 06:16] LABS: Anion Gap 15 mmol/L (10-20); BUN (Urea Nitrogen) 7 mg/dL (9.8-20.1); Calc. Creatinine Clearance 57 mL/min (70-130); Calcium 8.8 mg/dL (7.8-10.44); Carbon Dioxide 20 mmol/L (23-31); Chloride 97 mmol/L (98-107); Estimated GFR-MDRD 71; Glucose 78 mg/dL (83-110); Magnesium 1.2 mg/dL (1.6-2.6); Potassium 3.8 mmol/L (3.5-5.1); Sodium 128 mmol/L (136-145)
[2018-03-17] MEDS: Mometasone/Formoterol 120 PUFF INHALER INH SCH (07:19)
[2018-03-17 08:13] VITALS: TEMP 97.7
[2018-03-17] MEDS: ALPRAZolam 0.25 MG TAB PO SCH (08:44)
[2018-03-17] MEDS: Famotidine 20 MG TAB PO SCH (08:44)
[2018-03-17] MEDS: Carvedilol 6.25 MG TAB PO SCH (08:44)
[2018-03-17] MEDS: Enoxaparin Sodium 40 MG/0.4 ML SYRINGE SC SCH (08:45)
--- NOTE | 2018-03-17 11:19 | DIS ---
TRANSFER OF CARE NOTE PRIMARY CARE PROVIDER: Dr. Aarti Craig DATE OF ADMISSION: 03/15/2018 DATE OF DISCHARGE: 03/17/2018 DISPOSITION: Discharged back to [facility]. FINAL DIAGNOSES: 1. Atrial fibrillation. 2. Normal pressure hydrocephalus. 3. Dementia. 4. Hypertension. 5. Chronic nausea. 6. Abdominal discomfort. ALLERGIES: PENICILLIN, MEPERIDINE and IODINATED CONTRAST. DISCHARGE MEDICATIONS: Xanax 0.25 one in the morning, 2 at night, Apresoline 10 mg twice a day, Pro Air HFA 1 inhalation in the evening, Coreg 6.25 mg twice a day, Levothyroxine 50 mcg a day, Advair Di skus one inhalation in the morning, Premarin 0.625 mg a day, Namenda 10 mg twice a day, Protonix 40 m g a day. HOSPITAL COURSE: The patient admitted to the hospital through [facility]. She stated she just did not feel good. She was told she had poor vital signs and was refusing her medicines. Initial evaluation here; brain CT reveals an intracranial mass previously noted unchanged with no acu te process. Her laboratory, CBC was unremarkable x3. Comp metabolic profile revealed some trivial abnormalities, sodium 133, CO2 20, BUN 7, AST 39, otherwise unremarkable. Urine showed a few white cells. [facility] admitted and monitored. Home medicines restarted. Vital signs have blood pressures ranged from a high of 172/70 to a low of 112/53. She has been asymptomatic during this time. When question ed, she says she has had some nausea. She has some abdominal discomfort, but she has had them for a long time. The abdomen is benign. She is being discharged back to [facility] for continuing care. Tyra Craig, primary care doctor for followup. The patient did have some mild unchanged pleural e ffusions on chest x-ray which are chronic. There is no evidence of infective process, etc. CONSULTATIONS: None. PROCEDURES: None.
[2018-03-17 11:31] VITALS: BP 147/69
[2018-03-17] MEDS ORDERED: hydrALAZINE 10 MG TAB PO SCH (21:00)
== END 2018-03-17 11:05 | DRG 309 ==
LOC: ERS 19:59 → 2NO 23:41
PROVIDERS: ADMIT Internal Medicine Infectious Disease; ATTEND Internal Medicine Infectious Disease
DX: I48.2 Chronic atrial fibrillation (principal); G91.2 (Idiopathic) normal pressure hydrocephalus; J90 Pleural effusion, not elsewhere classified; F03.90 Unspecified dementia, unspecified severity, without behavioral disturbance, psychotic disturbance, mood disturbance, and anxiety; I10 Essential (primary) hypertension; E03.9 Hypothyroidism, unspecified; R10.9 Unspecified abdominal pain; G89.29 Other chronic pain; R11.0 Nausea; Z88.0 Allergy status to penicillin; Z88.8 Allergy status to other drugs, medicaments and biological substances
CPT/HCPCS: 36415; 36416; 51701; 70450; 71045; 71046; 80048; 80053; 81003; 81015; 82553; 83690; 83735; 83880; 84443; 84484; 85025; 87040; 87086; 93005; 96361; 96365; 96366; 96367; 96368; 96372; 96374; 96375; 96376; A4216; A4353; G0378; G8978-GP-CL; G8978-GP-CM; G8979-GP-CK; G8987-GO-CK; G8988-GO-CJ; G8996-GN-CJ; G8997-GN-CI; J0360; J1650; J1940; J1956; J2550; J3370; J3475; J3480; J7050; Q0162

== ENCOUNTER 2018-03-22 18:16 | Emergency (ER) | payer MEDICARE, MEDICAID ==
[2018-03-22 19:28] LABS: #Basophils 0.1 thou/uL (0.0-0.2); #Eosinphils 0.3 thou/uL (0.0-0.7); #Lymphocytes 2.8 thou/uL (1.20-3.40); #Neutrophils 4.5 thou/uL (1.40-6.50); %Basophils 1.2 % (0.0-1.0); %Eosinophils 3.3 % (0.0-10.0); %Lymphocytes 32.1 % (21.0-51.0); %Monocytes 11.3 % (0.0-10.0); %Neutrophils 52.1 % (42.0-75.0); Hemoglobin 12.1 g/dL (12.0-16.0); Mean Corpuscular HGB CONC 34.5 g/dL (32.0-36.0); Mean Corpuscular Hemoglobin 34.1 pg (27.0-31.0); Mean Corpuscular Volume 98.9 fL (78.0-98.0); Platelet Count 249 thou/uL (130-400); RBC Distribution Width 11.3 % (11.5-14.5); Red Blood Cell (RBC) Count 3.55 mill/uL (4.20-5.40); White Blood Cell (WBC) Count 8.5 thou/uL (4.8-10.8)
[2018-03-22 19:52] LABS: ALT (SGPT) 10 U/L (8-55); AST (SGOT) 23 U/L (5-34); Albumin 3.1 g/dL (3.4-4.8); Alkaline Phosphatase 65 U/L (40-150); Anion Gap 13 mmol/L (10-20); BUN (Urea Nitrogen) 8 mg/dL (9.8-20.1); Bilirubin, Total 0.6 mg/dL (0.2-1.2); Calc. Creatinine Clearance 0 mL/min (70-130); Calcium 8.5 mg/dL (7.8-10.44); Carbon Dioxide 23 mmol/L (23-31); Chloride 98 mmol/L (98-107); Estimated GFR-MDRD 69; Globulin 2.7 g/dL (2.4-3.5); Glucose 139 mg/dL (83-110); Lipase 12 U/L (8-78); Magnesium 1.3 mg/dL (1.6-2.6); Potassium 4.1 mmol/L (3.5-5.1); Protein, Total 5.8 g/dL (6.0-8.3); Sodium 130 mmol/L (136-145)
[2018-03-22 19:56] LABS: CKMB 0.7 ng/mL (0-6.6)
--- NOTE | 2018-03-22 20:07 | RAD ---
PORTABLE CHEST: History: Cough, shortness of breath. Comparison: 03-15-18 FINDINGS/IMPRESSION: Bilateral effusions and bibasilar infiltrates/atelectasis. Cardiomegaly and mild vascular engorgement . Scattered granuloma again noted. The above findings do not appear significantly changed from 03-15-18 exam. POS: [facility]
[2018-03-22] MEDS ORDERED: Ondansetron HCl/PF 4 MG/2 ML Vial ONE (20:54)
[2018-03-22] MEDS ORDERED: Furosemide 40 MG TAB ONE (21:11)
[2018-03-22] MEDS ORDERED: methylPREDNISolone Sod Succ/PF 125 MG/2 ML VIAL ONE (21:11)
[2018-03-22] MEDS ORDERED: Furosemide 20 MG/2 ML VIAL ONE (21:11)
[2018-03-22 23:11] LABS: Bilirubin Negative (Negative); Blood, Urine Negative (Negative); Clarity CLEAR (Clear); Glucose, Urine (Dipstick) Negative (Negative); Leukocyte Trace (Negative); Nitrite Negative (Negative); Protein, Urine (Dipstick) Negative (Neg-Trace); Specific Gravity, Urine 1.005 (1.002-1.036); Urobilinogen 0.2 mg/dL (0.2-1.0)
[2018-03-22 23:14] LABS: Bacteria/HPF None Seen HPF (None Seen); Hyaline Casts/LPF 4-6 HYALINE CAST LPF (0-3 Hyaline); Pathc Cast-AUWi Flag 1.16 (0-2.49); WBC/HPF 0-3 HPF (0-3)
== END 2018-03-23 00:35 | disposition home or self-care (01) ==
LOC: ERS 18:16
DX: I11.0 Hypertensive heart disease with heart failure (principal); I50.9 Heart failure, unspecified; F41.9 Anxiety disorder, unspecified; I48.91 Unspecified atrial fibrillation; F03.90 Unspecified dementia, unspecified severity, without behavioral disturbance, psychotic disturbance, mood disturbance, and anxiety; Z79.899 Other long term (current) drug therapy
CPT/HCPCS: 36415; 71045; 80053; 81003; 81015; 82553; 83690; 83735; 83880; 84484; 85025; 87086; 93005; 96374; 96375; J1940; J2405; J2930; J7620